=== PATIENT | female | born 2000 ===

== ENCOUNTER 2020-06-21 09:50 | Day surgery (SDC) | payer OTHER ==
[~2020-06-21] VITALS: Ht 152.4 cm; Wt 46.7 kg
--- NOTE | 2020-06-21 06:24 | NUR ---
SE RECIBE FEMINA ALERTA Y ORIENTADA POR RICHARD ESFERAS, AMBULANDO. REFIERE DOLOR PELVICO DESDE ANOCHE.
--- NOTE | 2020-06-21 07:36 | NUR ---
SE ORIENTA A PTE SOBRE PROCESO DE VENOPUNCION, BELINDA DE MUESTRAS, ADMINISTRACION DE MED IV & PO. PTE REFIERE ENTENDER INF FRANKLYN SE MANTIEN BAJO OBSERVACION EN [place]ERA DE SONOGR[place].
[~2020-06-21 09:50] MED LIST: PRENATE ELITE1 EAC2
== END 2020-06-21 13:00 | disposition home or self-care (01) ==
LOC: CIR.AMB 09:50 → EDSTATUS 12:00 → CIR.AMB 13:00 → SEC-K 22:26 → O/R 22:26 → SEC-K 22:30 → O/R 22:30
PROVIDERS: ATTEND General Practice
DX: O02.1 Missed abortion (principal); Z20.828 Contact with and (suspected) exposure to other viral communicable diseases

== ENCOUNTER 2022-04-26 17:57 | Inpatient (IN) | payer OTHER ==
[~2022-04-26] VITALS: Ht 152.4 cm; Wt 56.2 kg
[2022-05-03] MEDS ORDERED: PERCOCET 5-3251 EACH PO (07:51)
== END 2022-05-03 09:04 | disposition home or self-care (01) | DRG 786 ==
LOC: OBS/DEL 17:57 → LDR 21:23 → OB/GYN 21:23 → OBS/DEL 21:23 → O/R 21:23 → OB/GYN 04-30 13:58
PROVIDERS: ADMIT Obstetrics & Gynecology; ATTEND Obstetrics & Gynecology
PROC: 4A1HXCZ Monitoring of Products of Conception, Cardiac Rate, External Approach (ICD-10-PCS; 2022-04-26)
PROC: BY4FZZZ Ultrasonography of Third Trimester, Single Fetus (ICD-10-PCS; 2022-04-26)
PROC: BY4FZZZ Ultrasonography of Third Trimester, Single Fetus (ICD-10-PCS; 2022-04-28)
PROC: 10D00Z1 Extraction of Products of Conception, Low, Open Approach (ICD-10-PCS; principal; 2022-04-30 12:00)
DX: O42.013 Preterm premature rupture of membranes, onset of labor within 24 hours of rupture, third trimester (principal); O60.14X0 Preterm labor third trimester with preterm delivery third trimester, not applicable or unspecified; O34.211 Maternal care for low transverse scar from previous cesarean delivery; Z3A.31 31 weeks gestation of pregnancy; Z37.0 Single live birth; Z20.822 Contact with and (suspected) exposure to COVID-19